=== PATIENT | male | born 1960 | race Caucasian/White ===

== ENCOUNTER 2023-02-08 23:09 | Emergency (ER) | payer BC, SELFPAY ==
[2023-02-08 23:15] VITALS: BP 129/62; PULSE 59; RESP 20; TEMP 37.1; O2SAT 100; BMI 28.6
--- NOTE | 2023-02-08 23:25 | CRLHL7_ITS ---
For Patients: As a result of the Cures Act, medical imaging exams and procedure reports are released immediately into your electronic medical record. You may view this report before your referring provider. If you have questions, please contact your health care provider. HISTORY: Left hip injury. TECHNIQUE: Frontal view the pelvis. COMPARISON: None. FINDINGS: Small amount of ossification adjacent to the lesser trochanter bilaterally. No hip joint space narrowing. Pubic symphysis is maintained. 1.4 cm ovoid lucent focus with thin sclerotic margin at the left femoral neck. Atherosclerotic calcifications. IMPRESSION: 1. Small amount of ossification adjacent to the lesser trochanter bilaterally likely associated with the distal iliopsoas tendons. Enthesopathic tendon ossification is favored but avulsion fracture is not completely excluded. 2. 1.4 cm lucent focus in the left femoral neck may be a prominent synovial herniation pit. If patient has a history of malignancy a metastasis should be considered. Dictated by Hamzah Hurd MD @ 02/09/2023 1:12:11 AM (Electronically Signed)
--- NOTE | 2023-02-08 23:25 | ED.LOWEXIN ---
HPI - Extremity Injury (Lower) General Chief Complaint: Extremity Pain/Injury, Lower Stated Complaint: Left Leg Pain Time Seen by Provider: 02/08/23 23:09 History of Present Illness HPI Narrative: Patient is a 62-year-old gentleman who was aggressively lifting weights this afternoon when he felt a popping sensation in severe pain in the left anterior thigh. Patient is had no significant swelling but the pain is excruciating. Patient has a hard time bearing weight but has no discomfort in his calf knee ankle. He has no other injuries and has no pre-existing medical conditions involving the left thigh. Patient has no history of DVT. He has been trying to ice and take Tylenol Motrin with limited success. Patient can walk with a significant limp. Related Data Home Medications Medication Instructions Recorded Confirmed metformin 500 mg tablet mg PO 02/08/23 pioglitazone 45 mg tablet 45 mg PO DAILY 02/08/23 02/08/23 rosuvastatin 40 mg tablet 40 mg PO DAILY 02/08/23 02/08/23 semaglutide 0.25 mg or 0.5 mg (2 0.2344 mg subcut 02/08/23 mg/3 mL) subcutaneous pen injector (Ozempic) sildenafil (pulm.hypertension) 20 20 - 100 mg PO PRN 02/08/23 02/08/23 mg tablet valacyclovir 500 mg tablet 500 mg PO DAILY 02/08/23 02/08/23 Allergies Allergy/AdvReac Type Severity Reaction Status Date / Time No Known Drug Allergies Allergy Verified 02/08/23 23:20 Review of Systems Status of ROS: Reports: 10 or more systems reviewed and unremarkable except as noted in History and below [facility] Medical History (Updated 02/08/23 @ 23:59 by Jaden Richards MD) Atherosclerosis of aorta ?I70.0 - Atherosclerosis of aorta (ICD-10) Atrial flutter ?I48.92 - Unspecified atrial flutter (ICD-10) Diabetes mellitus type 2, controlled, without complications ?E11.9 - Type 2 diabetes mellitus without complications (ICD-10) Male erectile disorder ?N52.9 - Male erectile dysfunction, unspecified (ICD-10) Pure hypercholesterolemia ?E78.00 - Pure hypercholesterolemia, unspecified (ICD-10) Social History Smoking Status: Never smoker Do you use any of these nicotine containing products: None How often do you have a drink containing alcohol: monthly or less AUDIT-C Alcohol total score: 1 Non-prescribed substance use: denies use Exam Narrative: Exam Narrative: EXAM GENERAL: Patient appears to be modestly uncomfortable. LYMPH: No supraclavicular or cervical lymphadenopathy. SKIN: Visible skin seen during exam normal or with benign process only. EXT: No dependent lower extremity pedal edema. No palpable abnormalities of the left thigh or lower extremity. HEART: Regular rate and rhythm with no murmurs, rubs, or gallops. LUNGS: Clear to auscultation bilaterally with no crackles or wheezes. ABD: Soft, non tender, non distended. PSYCH: Good eye contact, speech is not pressured. Const: Vital Signs, click to edit/add: Vital Signs - 24 hr 02/08/23 23:15 Temperature 98.7 F Pulse Rate [Right Pulse Oximeter] 59 L Respiratory Rate 20 Blood Pressure [Le ft Upper Arm] 129/62 Pulse Oximetry 100 Oxygen Delivery Me thod Room Air Course Course Hospital Course: X-ray of the pelvis pending. Vital Signs Vital signs: Initial Vital Signs Temperature 98.7 F 02/08/23 23:15 Temperature Source Temporal Artery Scan 02/08/23 23:15 Pulse Rate 59 L 02/08/23 23:15 Pulse Rhythm Regular 02/08/23 23:15 Respiratory Rate 20 02/08/23 23:15 Blood Pressure 129/62 02/08/23 23:15 Blood Pressure Mean 84 02/08/23 23:15 Pulse Oximetry 100 02/08/23 23:15 Oxygen Delivery Method Room Air 02/08/23 23:15 Vital Signs Temperature 98.7 F 02/08/23 23:15 Pulse Rate 59 L 02/08/23 23:15 Respiratory Rate 20 02/08/23 23:15 Blood Pressure 129/62 02/08/23 23:15 Pulse Oximetry 100 02/08/23 23:15 Oxygen Delivery Method Room Air 02/08/23 23:15 Temperature 98.7 F 02/08/23 23:15 Pulse Rate 59 L 02/08/23 23:15 Respiratory Rate 20 02/08/23 23:15 Blood Pressure 129/62 02/08/23 23:15 Pulse Oximetry 100 02/08/23 23:15 Oxygen Delivery Method Room Air 02/08/23 23:15 MDM - Extremity Injury (Lower) MDM Narrative Medical decision making narrative: Patient is a 62-year-old gentleman with severe pain in his quadriceps after a weightlifting accident. I am unable to see any or palpate any abnormalities. X-ray series of the pelvis is normal. A suspect his quadriceps injury potentially tear which would require more time to heal ice Tylenol Motrin fluids and rest. I would recommend that if his symptoms not improve in the next 3-4 days we proceed with an MRI of the left leg without contrast. Give a copy my card so can help facilitate things as an outpatient. He Will be in followup as needed. Differential Diagnosis Differential diagnosis: Likely fracture of femur and fracture of hip Discharge Plan Discharge Clinical Impression: Injury of quadriceps muscle Patient Disposition: Home, Self-Care Condition: Stable Additional Instructions: Advance activity as tolerated Ice as needed [place] as directed Tylenol Motrin Rest Fluids Follow-up in 3-4 days if symptoms not improved to discuss MRI. Activity Level: Activity as Tolerated Discharge Diet: Regular Prescriptions: No Action metformin 500 mg tablet PO pioglitazone 45 mg tablet 45 mg PO DAILY valacyclovir 500 mg tablet 500 mg PO DAILY rosuvastatin 40 mg tablet 40 mg PO DAILY sildenafil (pulm.hypertension) 20 mg tablet 20 - 100 mg PO PRN Ozempic 0.25 mg or 0.5 mg (2 mg/3 mL) pen injector 0.2344 mg subcut Follow Up/Referrals: Dominic Santos MD [Referring] - Stand Alone Forms: [employer] Info Instructions
--- OUTSIDE RECORDS SUMMARY | 2023-02-08 23:40 | XMS_ITS | Continuity of Care Document ---
Author Name Unknown Organization [facility] Address [address] [address] [place] [address] Phone Care Team Providers Care Equal Opportunity Assistant Name Role Phone Unavailable Unavailable Unavailable Allergies, Adverse Reactions, Alerts Substance Reaction Status Criticality No Known Allergies Active No Inform ation Medications Medication Instructions Dosage Effective Dates (start - stop) Status Comments metformin 500 mg tablet take 2 tablet by oral route 2 times every day with morning and evening meals 1000 MG - Active pioglitazone 45 mg tablet take 1 tablet by oral route every day 45 MG - Active rosuvastatin 40 mg tablet take 1 tablet by oral route every day 40 MG - Active valacyclovir 500 mg tablet take 1 tablet by oral route every day 500 MG - Active meloxicam 15 mg tablet take 1 tablet by oral route every day 15 MG - Active Procedures Procedure Date Colonoscopy Flex; Dx (sep Pro) Advance Directives Directive Yes / No Effective Date File Name No Information Encounters Encounter Description Practice Location Reason(s) For Visit Diagnoses Date Provider Providers Copied on Encounter [facility], [address] [address], [place], [id number], [place] tel:[phone] Young [facility] No Information No Information Referring Provider: Shan Restrepo MD E, [address] [facility] [address], [place], [address] . tel:[phone] [facility], [address] [address], [place], [id number], tel:[phone] [facility] Screening ColonoscopyEncou nter for screening for malignant neoplasm of colon 1 Lauro Torrez. [address], [id number], [place]. tel:[phone] Referring Provider: Ronan Miner [place] G, [address] [place], [address]. tel:[phone] [facility], [address] [address], [place], [place], [id number], [place] tel:[phone] [facility] No Information 1 Raine Dominguez. [address] [facility] [address], [place], [id number], [place]. tel:[phone] Family History Family Member Type Diagnosis Age At Onset No Information Immunizations Vaccine Date Status Comments tetanus toxoid, reduced diphtheria toxoid, and acellular pertussis vaccine, adsorbed administered Note: [facility] b i-directional interface ; Source: Other Registry Influenza, seasonal, injectable administe red Note: [facility] bi- directional interface ; Source: Other Registry Prevnar 13 administered Note: [facility] bi-d irectional interface ; Source: Other Registry tetanus toxoid, reduced diphtheria toxoid, and acellular pertussis vaccine, adsorbed administered Note: [facility] b i-directional interface ; Source: Other Registry Influenza, seasonal, injectable administe red Note: [facility] bi- directional interface ; Source: Other Registry Pneumovax 23 administered Note: [facility] bi-d irectional interface ; Source: Other Registry tetanus and diphtheria toxoi ds, adsorbed, preservative free, for adult use (2 Lf of tetanus toxoid and 2 Lf of diphtheria toxoid) administered Note: [facility] bi-direct ional interface ; Source: Other Registry tetanus and diphtheria toxoi ds, adsorbed, preservative free, for adult use (2 Lf of tetanus toxoid and 2 Lf of diphtheria toxoid) administered Note: [facility] bi-direct ional interface ; Source: Other Registry Payers Payer name Insurance type Covered libertarian ID Authormichaela fidencio(s) [facility] [id number] Social History Type Description Quantity Date Captured Comments Sex Male Smoking Status No Information Chief Complaint And Reason For Visit No Information Reason For Referral Reason For Referral No Information Plan Of Treatment Date Type Action Status No Information History Of Present Illness Encounter Date Complaint History Of Prese nt Illness No Information Functional Status Date Functional Assessmen t No Information Instructions Date Instruction Additional Infor kee Colon Cancer Prevention Related to Screening Colonoscopy Assessments Type Assessment Date No Information Patient Care Teams Name Effective Dates (start - stop) Status Members No Information
--- OUTSIDE RECORDS SUMMARY | 2023-02-08 23:40 | XMS_ITS | Continuity of Care Document ---
Author Name Unknown Organization [facility] Address [address] [address] [place] [address] Phone Care Team Providers Care Collection Technician Name Role Phone Unavailable Unavailable Unavailable Allergies, [...] Diagnoses Date Provider Providers Copied on Encounter [facility], [address] [address], [place], [id number], [place] tel:[phone] Young [facility] No Information No Information Referring Provider: Shan Restrepo MD E, [address] [facility] [address], [place], [address] . tel:[phone] [facility], [address] [address], [place], [id number], tel:[phone] [facility] Screening ColonoscopyEncou nter for screening for malignant neoplasm of colon 1 Lauro Torrez. [address], [id number], [place]. tel:[phone] Referring Provider: Ronan Miner MD G, [address] [place], [address]. tel:[phone] [facility], [address] [address], [place], [place], [id number], [place] tel:[phone] [facility] No Information 1 Raine Dominguez. [address] [facility] [address], [place], [id number], [place]. tel:[phone] Family History Family Member Type Diagnosis Age [...] Registry Payers Payer name Insurance type Covered democrat ID Authormichaela fidencio(s) [facility] [id number] Social History Type Description Quantity Date Captured [...]
== END 2023-02-09 00:08 | disposition home or self-care (01) ==
PROVIDERS: Emergency Provider Internal Medicine; PCP Family Medicine
DX: S76.102A Unspecified injury of left quadriceps muscle, fascia and tendon, initial encounter (principal); X50.0XXA Overexertion from strenuous movement or load, initial encounter; Y93.B9 Activity, other involving muscle strengthening exercises
CPT/HCPCS: 72170; 99283